=== PATIENT | male | born 1960 | race Caucasian/White ===

== ENCOUNTER 2017-01-02 13:05 | Day surgery (SDC) | payer OTHER ==
[~2017-01-02] VITALS: Ht 175.3 cm; Wt 71.2 kg
[~2017-01-02 13:05] MED LIST: ADVIL,NUPRIN,M200 MG PO; CIALIS20 MG PO; CLARITIN,ALAVAR10 MG PO; CLARITIN-D 21 TABLET PO; COLCHICINE0.6 M1 PO; COLCRYS0.6 MG PO; Colchicine,Colcrys PO; DELTASONE20 M1 PO; DOCUSATE SODIU100 MG PO; ENDOCET 5-3251 EACH PO; IBUPROFEN800 MG PO; KEFLEX500 MG PO; LIDODERM 5% P1 PATCH TD; MAG-OXIDE400 MG PO; MOTRIN600 MG PO; MOTRIN800 MG PO; NITROSTAT0.4 MG SL; PERCOCET 5/31 TABLET PO; PREDNISONE10 MG PO; PREDNISONE20 MG PO; PREDNISONE5 MG PO; PROPRANOLOL HC120 MG PO; STOOL SOFTENER100 MG PO; VISTARIL25 MG PO
[2017-01-02] MEDS ORDERED: IMODIUM A-D2 M2 PO (13:33)
[2017-01-02 13:49] VITALS: BP 153/91
[2017-01-02 18:01] VITALS: BP 125/57
[2017-01-02 19:12] VITALS: BP 119/69
== END 2017-01-02 19:23 | disposition home or self-care (01) ==
LOC: SDC
DX: M72.2 Plantar fascial fibromatosis (principal); I10 Essential (primary) hypertension; K21.0 Gastro-esophageal reflux disease with esophagitis; Z80.0 Family history of malignant neoplasm of digestive organs
CPT/HCPCS: J0690; J1100; J1170; J1885; J2250; J2405; J2765; J3010; J3301; Q0175; S0020

== ENCOUNTER 2018-01-15 05:26 | Day surgery (SDC) | payer OTHER ==
[~2018-01-15] VITALS: Ht 175.3 cm; Wt 72.6 kg
[~2018-01-15 05:26] MED LIST changes: +IMODIUM A-D2 M2 PO; +MELALEUCA10 ML IJ; +ZYRTEC10 M3 PO
[2018-01-15] MEDS ORDERED: PERCOCET 5/31 TABLET PO (05:49)
[2018-01-15] MEDS ORDERED: IBUPROFEN800 MG PO (05:50)
[2018-01-15 06:04] VITALS: BP 125/88
[2018-01-15 09:20] VITALS: BP 130/66
[2018-01-15 10:16] VITALS: BP 131/78
[2018-01-15 11:50] VITALS: BP 111/69
== END 2018-01-15 13:24 | disposition home or self-care (01) ==
LOC: SDC 05:26
PROC: 0JNQ0ZZ Release Right Foot Subcutaneous Tissue and Fascia, Open Approach (ICD-10-PCS; principal; 2018-01-15)
DX: M72.2 Plantar fascial fibromatosis (principal); I10 Essential (primary) hypertension; E78.5 Hyperlipidemia, unspecified; Z80.0 Family history of malignant neoplasm of digestive organs; Z87.891 Personal history of nicotine dependence
CPT/HCPCS: J0690; J1100; J1170; J2405; J2765; J3010